=== PATIENT | male | born 1960 ===

== ENCOUNTER 2021-12-30 18:21 | Emergency (ER) | payer OTHER, SELFPAY ==
[2021-12-30 18:33] VITALS: BP 128/79; PULSE 59; RESP 16; TEMP 38.7; O2SAT 96
[2021-12-30] MEDS: Acetaminophen 325 MG TAB 650 MG PO (18:54)
--- NOTE | 2021-12-30 19:23 | ED.GENADUL_ITS ---
Discharge Plan Disposition Patient Disposition: HOME Condition: Stable Discharge Details Clinical Impression: COVID-19 Primary Care Provider: Unknown,Unknown ED Provider: Renetta Arteaga Home Meds and New Rx's Prescriptions: No Action atorvastatin 40 mg Tablet 40 mg PO DAILY labetalol 200 mg Tablet 200 mg PO BID clopidogrel 75 mg Tablet 75 mg PO DAILY tamsulosin 0.4 mg Capsule 0.4 mg PO DAILY amlodipine 10 mg Tablet 10 mg PO DAILY Discharge Instructions Instructions: COVID-19 (Coronavirus Disease 2019) (ED), Face Coverings (Masks) and COVID-19 (ED) Additional Instructions: Please speak with your primary care provider prior to starting the Paxlovid. It is recommended that if you do start the Paxlovid you need to stop the atorvastatin and possibly decrease the dose of the Plavix or clopidogrel which is your blood thinner. Please use the albuterol inhaler 1 or 2 puffs every 4-6 hours as needed for wheezing or shortness of breath. Take an [id number] multivitamin, zinc, vitamin c and vitamin D3. Follow up with primary care provider in 3-5 days. Return to ED sooner if any worsening or concerns. Increase oral fluids. Please take Tylenol with food every 4-6 hours as needed for pain and fever. Stand Alone Forms: Work Release Medical Decision Making Patient was given Tylenol here upon arrival I did discuss home care follow-up care and discussed the risks and benefits of Paxil bid. He is at high risk and does qualify for Paxil bid. I did prescribe it to him I did discuss stopping his atorvastatin and decreasing his Plavix and discussing this with his primary care provider prior to him initiating the Paxil again. He verbalizes understanding. HPI General Mode of arrival: ambulatory . Date/Time Provider Initiated Documentation: 12/30/21 18:31 . Limitations to Documentation: no limitations . Information obtained by: patient, RN notes reviewed and old records reviewed . HPI Narrative: 61-year-old male with a past medical history of coronary artery disease hypertension hypercholesterolemia presents to the ER with chief complaint of fever sore throat chills and testing positive for COVID this afternoon. He reports that the symptoms started today. He is positive for COVID here in the department. He is breathing eupneic does report cough. No wheezing or rhonchi auscultated he is satting 96% on room air he is febrile. He denies any other associated symptoms. Related Data Home Medications Medication Instructions Recorded Confirmed amlodipine 10 mg tablet 10 mg PO DAILY 12/30/21 12/30/21 atorvastatin 40 mg tablet 40 mg PO DAILY 12/30/21 12/30/21 clopidogrel 75 mg tablet 75 mg PO DAILY 12/30/21 12/30/21 labetalol 200 mg tablet 200 mg PO BID 12/30/21 12/30/21 tamsulosin 0.4 mg capsule 0.4 mg PO DAILY 12/30/21 12/30/21 Allergies Allergy/AdvReac Type Severity Reaction Status Date / Time No Known Allergies Allergy Unverified 12/30/21 18:37 General Stated Complaint: RespSymp VINCENZO: 3 Review of Systems All systems reviewed & are unremarkable except as noted in HPI and below Constitutional Constitutional: Reports body ache(s), Reports chills and Reports fever(s) ENT Ears, Nose, Mouth, and Throat: Reports sore throat Cardiovascular Cardiovascular: Denies chest pain Respiratory Respiratory: Reports as per HPI, Reports cough, Denies stridor and Denies wheezing Allergic/Immunologic Allergic/Immunologic: Denies wheezing PFSH All Active Problems (Updated 12/30/21 @ 19:28 by Renetta Arteaga NP) COVID-19 (Acute) Social History Smoking/Tobacco Use Status: Former Tobacco Use Smoking risk assessment performed?: Yes Substance use type: does not use Exam Narrative Exam Narrative: Constitutional: Alert and oriented x3. Appears stated age. Normal body habitus. Head: Normocephalic, no trauma. Eyes: Pupils PERRL, Red reflex noted, EOM's intact. Eyelids symmetrical without lesions, discharge, or swelling. ENT: Bilateral TM's WNL, External ear normal to inspection, no mastoid TTP, swelling, or erythema, Nasal turbinates WNL, no nasal discharge. Normal dentition, Posterior pharynx WNL, no exudate. Chest: RRR, Normal S1, S2, distal pulses intact. Resp: Lungs clear to auscultation bilaterally, no wheezes, rales, or rhonchi. Abdomen: Soft, non-distended, Normoactive bowel sounds all 4 quads. Musculoskeletal: Normal gait, 5/5 strength to all four extremities. Skin: No suspicious rashes or lesions. Capillary refill less than 2 sec. Course Vital Signs Vital signs: Vital Signs Temperature 38.7 C H 12/30/21 18:33 Pulse 59 L 12/30/21 18:33 Respiratory Rate 16 12/30/21 18:33 Blood Pressure 128/79 12/30/21 18:33 Pulse Oximetry 96 12/30/21 18:33 Temperature 38.7 C H 12/30/21 18:33 Temperature Source Tympanic 12/30/21 18:33 Pulse 59 L 12/30/21 18:33 Respiratory Rate 16 12/30/21 18:33 Respiratory Effort 12/30/21 18:33 Blood Pressure 128/79 12/30/21 18:33 Blood Pressure Position Sitting 12/30/21 18:33 Pulse Oximetry 96 12/30/21 18:33 Oxygen Delivery Method Room Air 12/30/21 18:33 Oxygen Flow Rate 0 12/30/21 18:33 Pain Level 2 12/30/21 18:33 Comment 12/30/21 18:33
[2021-12-30] MEDS: Dexamethasone 4 MG TAB PO (19:43)
[2021-12-30] MEDS: Albuterol HFA 8 GM 60 PUFF INH IH (19:43)
[2021-12-30] MEDS: Inhaler, Assist Device 1 EACH MC (19:43)
== END 2021-12-30 19:53 | disposition home or self-care (01) ==
PROVIDERS: Emergency Provider Registered Nurse Emergency
DX: U07.1 COVID-19 (principal)
CPT/HCPCS: 99283; J8540